=== PATIENT | female | born 1995 | race Caucasian/White ===

== ENCOUNTER 2018-05-13 09:41 | Emergency (ER) | payer OTHER ==
[2018-05-13 11:01] LABS: Urine Blood 2+ (NEG); Urine Glucose NEGATIVE (NEG); Urine Protein 1+ (NEG)
[2018-05-13 11:04] LABS: Urine Bacteria >50 /HPF (<20); Urine Culture Reflex Order NOT NEEDED; Urine RBC <5 /HPF (NONE SEEN)
--- NOTE | 2018-05-13 11:04 | RAD REPORT ---
EXAM DESCRIPTION: CT - Stone Protocol - 05/13/2018 10:44 am CLINICAL HISTORY: Flank pain. FLANK PAIN COMPARISON: No comparisons TECHNIQUE: Axial images were obtained without oral or IV contrast. Lack of contrast limits solid org an and vascular assessment. The [id number] spans the entirety of the system partially obscuring uppermost abdomen and lung bases. Coronal reformatted images were obtained and reviewed. All CT scans are performed using dose optimization technique as appropriate and may include automated exposure control or mA/KV adjustment according to patient size. FINDINGS: The lower lung shannon are clear. Imaged portions of the liver and spleen show no suspicious findings on non-contrast imaging. The panc reas and adrenal glands are normal. No pathologic lymphadenopathy in the abdomen or pelvis. 5 mm stone (700 HU) right UVJ resulting in mild right hydronephrosis and hydroureter. A small calculu s is present inferior left kidney. No bowel obstruction, free air, free fluid or abscess. Normal appendix noted. No significant bony abnormality. A 3 cm right ovarian cyst suspected. IMPRESSION: 5 mm stone (700 HU) with moderate right hydronephrosis. Punctate inferior left renal calculus.
[2018-05-13] MEDS ORDERED: ONDANSETRON 4 MG/2 ML VIAL ONE (11:15)
[2018-05-13] MEDS ORDERED: TAMSULOSIN 0.4 MG SR CAP ONE (11:15)
[2018-05-13] MEDS ORDERED: MAGNESIUM SULFATE 1 gm IVPB 1 GM/100 ML BAG IV ONE (11:16)
[2018-05-13] MEDS ORDERED: NA CHLORIDE 0.9% 1,000 ML ONE (11:16)
[2018-05-13 11:43] LABS: BUN Blood Urea Nitrogen 9 mg/dL (7-18); Bicarbonate 25 mmol/L (21-32); Glucose Level 103 mg/dL (74-106); Potassium 3.5 mmol/L (3.5-5.1); Sodium Level 141 mmol/L (136-145)
--- NOTE | 2018-05-13 12:15 | ER ---
Nurse's Notes [facility] Name: Brenna Campuzano Age: 22 yrs Sex: Female : 1995 Arrival Date: 05/13/2018 Time: 09:45 Bed 17 Private MD: Diagnosis: Calculus of kidney and ureter Presentation: 05/13 10:20 Presenting complaint: Patient states: Urinary urgency and feeling that she is unable to aj empty her bladder for 2-3 weeks. 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 Transition of care: patient was not received from another setting of care. Onset of symptoms was April 27, 2018. Risk Assessment: Do you want to hurt yourself or someone else? Patient reports no desire to harm self or others. Initial Sepsis Screen: Does the patient meet any 2 criteria? No. Patient's initial sepsis screen is negative. Does the patient have a suspected source of infection? No. Patient's initial sepsis screen is negative. Care prior to arrival: None. 10:20 Method Of Arrival: Ambulatory 10:20 Acuity: ARDEN 3 aj Triage Assessment: 10:22 General: Appears in no apparent distress. uncomfortable, Behavior is calm, cooperative, aj appropriate for age. Pain: Complains of pain in right mid back. Neuro: Level of Consciousness is awake, alert, obeys commands, Oriented to person, place, time, situation, Appropriate for age. Respiratory: Airway is patent Respiratory effort is even, unlabored, Respiratory pattern is regular, symmetrical. GI: Reports nausea. : Reports urgency, urinary frequency. Derm: Skin is intact, is healthy with good turgor, Skin is pink, warm \T\ dry. normal. Musculoskeletal: Circulation, motion, and sensation intact. Reports pain in right mid back. 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 - Social history:: Smoking status: Patient/guardian denies using tobacco. - Ebola Screening: : Patient negative for fever greater than or equal to 101.5 degrees Fahrenheit, and additional compatible Ebola Virus Disease symptoms Patient denies exposure to infectious person Patient denies travel to an Ebola-affected area in the 21 days before illness onset No symptoms or risks identified at this time. Screenin:44 Abuse screen: Denies threats or abuse. Denies injuries from another. Nutritional hj screening: No deficits noted. Tuberculosis screening: No symptoms or risk factors identified. Fall Risk None identified. Assessment: 10:20 General: Appears in no apparent distress. uncomfortable, Behavior is calm, cooperative, hj appropriate for age. Pain: Complains of pain in right mid back. Neuro: Level of Consciousness is awake, alert, obeys commands, Oriented to person, place, time, situation, Appropriate for age. Cardiovascular: Capillary refill < 3 seconds Patient's skin is warm and dry. Respiratory: Airway is patent Respiratory effort is even, unlabored, Respiratory pattern is regular, symmetrical. GI: Abdomen is non-distended. : No signs and/or symptoms were reported regarding the genitourinary system. EENT: No signs and/or symptoms were reported regarding the EENT system. Derm: No signs and/or symptoms reported regarding the dermatologic system. Musculoskeletal: Reports pain in right mid back. 11:48 Reassessment: Patient and/or family updated on plan of care and expected duration. Pain hj level reassessed. Patient is alert, oriented x 3, equal unlabored respirations, skin warm/dry/pink. presence of stone; medicated; awaiting results and POC:. Vital Signs: 10:22 BP 131 / 87; Pulse 88; Resp 19; Temp 97.6; Pulse Ox 100% on R/A; Weight 81.65 kg; aj Height 5 ft. 5 in. (165.10 cm); 11:48 BP 123 / 77; Pulse 90; Resp 18; Pulse Ox 100% on R/A; hj 12:13 BP 129 / 85; Pulse 96; Resp 18; Pulse Ox 100% on R/A; hj 10:22 Body Mass Index 29.95 (81.65 kg, 165.10 cm) ED Course: 09:45 Patient arrived in ED. mr 09:45 Arianna Orantes [facility]-C [facility]. kb 09:45 Ab Inman MD is Attending Physician. kb 10:20 Initial lab(s) drawn, by me, sent to lab. Inserted saline lock: 22 gauge in right hj antecubital area, using aseptic technique. Blood collected. 10:22 Triage completed. aj 10:22 Arm band placed on right wrist. Patient placed in an exam room. aj 10:24 Elpidio Grimes, RN is Primary Nurse. hj 10:33 Radiology exam delayed due to test not completed at this time. sj 10:42 CT Stone Protocol In Process Unspecified. EDMS 10:45 Patient has correct armband on for positive identification. Bed in low position. Call hj light in reach. Side rails up X 1. Adult w/ patient. 12:16 Pelon Daniels MD is Referral Physician. kb 12:24 No provider procedures requiring assistance completed. IV discontinued, intact, hj bleeding controlled, No redness/swelling at site. Pressure dressing applied. Administered Medications: 11:05 Drug: NS 0.9% 1000 ml Route: IV; Rate: 1000 ml; Site: right antecubital; hj 11:50 Follow up: IV Status: Completed infusion hj 11:05 Drug: Zofran 4 mg Route: IVP; Site: right antecubital; hj 11:50 Follow up: Response: No adverse reaction hj 11:05 Drug: Magnesium Sulfate 1 grams Route: IVPB; Infused Over: 30 mins; Site: right hj antecubital; 11:50 Follow up: Response: No adverse reaction hj 12:26 Follow up: IV Status: Completed infusion hj 11:23 Drug: Flomax 0.4 mg Route: PO; hj 11:50 Follow up: Response: No adverse reaction hj 12:07 Drug: TORadol 30 mg Route: IVP; Site: right antecubital; hj 12:12 Follow up: Response: Pain is decreased hj 12:07 Drug: Rocephin - (cefTRIAXone) 1 grams Route: IVPB; Infused Over: 30 mins; Site: right hj antecubital; 12:13 Follow up: IV Status: Completed infusion hj Outcome: 12:15 Discharge ordered by . kb 12:24 Discharged to home ambulatory. hj 12:24 Condition: stable 12:24 Discharge instructions given to patient, family, Instructed on discharge instructions, follow up and referral plans. medication usage, Demonstrated understanding of instructions, follow-up care, medications, Prescriptions given X 5 Rx; 12:25 Patient left the ED. hj Signatures: Dispatcher [employer] EDMS Arianna Orantes ROLL UP OPERATOR-C ROLL UP OPERATOR-CkCinthia Bolton, RN RN Serena Moreland Susan sj Joaquin, Henry, RN RN hj
--- NOTE | 2018-05-13 12:15 | EDPHYS ---
Physician Documentation [facility] Name: Brenna Cmapuzano Age: 22 yrs Sex: Female : 1995 Arrival Date: 05/13/2018 Time: 09:45 Bed 17 Private MD: ED Physician Ab Inman HPI: 05/13 12:12 This 22 yrs old Female presents to ER via Ambulatory with complaints of Back kb Pain, Urinary Problem, Nausea. 12:13 The patient complains of pain in the right flank. The pain does not radiate. Onset: The kb symptoms/episode began/occurred 1 hour(s) ago. Modifying factors: The symptoms are alleviated by nothing. the symptoms are aggravated by nothing. Associated signs and symptoms: Pertinent positives: nausea, difficulty urinating. Severity of pain: At its worst the pain was moderate in the emergency department the pain is unchanged. The patient has not experienced similar symptoms in the past. The patient has not recently seen a physician. 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 - Social history:: Smoking status: Patient/guardian denies using tobacco. - Ebola Screening: : Patient negative for fever greater than or equal to 101.5 degrees Fahrenheit, and additional compatible Ebola Virus Disease symptoms Patient denies exposure to infectious person Patient denies travel to an Ebola-affected area in the 21 days before illness onset No symptoms or risks identified at this time. ROS: 12:13 Constitutional: Negative for fever, chills, and weight loss, Cardiovascular: Negative kb for chest pain, palpitations, and edema, Respiratory: Negative for shortness of breath, cough, wheezing, and pleuritic chest pain, Abdomen/GI: Negative for abdominal pain, nausea, vomiting, diarrhea, and constipation, MS/Extremity: Negative for injury and deformity, Skin: Negative for injury, rash, and discoloration, Neuro: Negative for headache, weakness, numbness, tingling, and seizure. 12:13 : Positive for urinary symptoms, flank pain, small amounts, difficulty urinating. Exam: 12:13 Constitutional: This is a well developed, well nourished patient who is awake, alert, kb and in no acute distress. Head/Face: Normocephalic, atraumatic. Chest/axilla: Normal chest wall appearance and motion. Nontender with no deformity. No lesions are appreciated. Cardiovascular: Regular rate and rhythm with a normal S1 and S2. No gallops, murmurs, or rubs. Normal PMI, no JVD. No pulse deficits. Respiratory: Lungs have equal breath sounds bilaterally, clear to auscultation and percussion. No rales, rhonchi or wheezes noted. No increased work of breathing, no retractions or nasal flaring. Abdomen/GI: Soft, non-tender, with normal bowel sounds. No distension or tympany. No guarding or rebound. No evidence of tenderness throughout. Skin: Warm, dry with normal turgor. Normal color with no rashes, no lesions, and no evidence of cellulitis. MS/ Extremity: Pulses equal, no cyanosis. Neurovascular intact. Full, normal range of motion. Neuro: Awake and alert, GCS 15, oriented to person, place, time, and situation. Cranial nerves II-XII grossly intact. Motor strength 5/5 in all extremities. Sensory grossly intact. Cerebellar exam normal. Normal gait. 12:13 Back: CVA tenderness, that is moderate, is noted on the right. Vital Signs: 10:22 BP 131 / 87; Pulse 88; Resp 19; Temp 97.6; Pulse Ox 100% on R/A; Weight 81.65 kg; aj Height 5 ft. 5 in. (165.10 cm); 11:48 BP 123 / 77; Pulse 90; Resp 18; Pulse Ox 100% on R/A; hj 12:13 BP 129 / 85; Pulse 96; Resp 18; Pulse Ox 100% on R/A; hj 10:22 Body Mass Index 29.95 (81.65 kg, 165.10 cm) aj MDM: 10:24 Patient medically screened. kb 12:14 Data reviewed: vital signs, nurses notes. Data interpreted: Pulse oximetry: on room air kb is 100 %. Interpretation: normal. Counseling: I had a detailed discussion with the patient and/or guardian regarding: the historical points, exam findings, and any diagnostic results supporting the discharge/admit diagnosis, lab results, radiology results, the need for outpatient follow up, a urologist, to return to the emergency department if symptoms worsen or persist or if there are any questions or concerns that arise at home. 05/13 10:23 Order name: Urine Microscopic Only; Complete Time: 11:05 kb 05/13 10:36 Order name: Urine Dipstick--Ancillary (enter results); Complete Time: 11:03 eb 05/13 10:31 Order name: CT Stone Protocol; Complete Time: 11:04 kb 05/13 10:36 Order name: Urine --Ancillary (enter results); Complete Time: 11:03 eb 05/13 11:05 Order name: Basic Metabolic Panel; Complete Time: 12:07 kb 05/13 10:23 Order name: Urine Test (obtain specimen); Complete Time: 10:34 kb 05/13 10:23 Order name: Urine Dipstick-Ancillary (obtain specimen); Complete Time: 10:34 kb 05/13 11:05 Order name: IV Start; Complete Time: 11:24 kb Administered Medications: 11:05 Drug: NS 0.9% 1000 ml Route: IV; Rate: 1000 ml; Site: right antecubital; hj 11:50 Follow up: IV Status: Completed infusion hj 11:05 Drug: Zofran 4 mg Route: IVP; Site: right antecubital; hj 11:50 Follow up: Response: No adverse reaction hj 11:05 Drug: Magnesium Sulfate 1 grams Route: IVPB; Infused Over: 30 mins; Site: right hj antecubital; 11:50 Follow up: Response: No adverse reaction hj 12:26 Follow up: IV Status: Completed infusion hj 11:23 Drug: Flomax 0.4 mg Route: PO; hj 11:50 Follow up: Response: No adverse reaction hj 12:07 Drug: TORadol 30 mg Route: IVP; Site: right antecubital; hj 12:12 Follow up: Response: Pain is decreased hj 12:07 Drug: Rocephin - (cefTRIAXone) 1 grams Route: IVPB; Infused Over: 30 mins; Site: right hj antecubital; 12:13 Follow up: IV Status: Completed infusion hj Disposition: 14:35 Co-signature as Attending Physician, Ab Inman MD. rn Disposition: 05/13/18 12:15 Discharged to Home. Impression: Calculus of kidney and ureter. - Condition is Stable. - Discharge Instructions: Kidney Stones, [id number], Dietary Guidelines to Help Prevent Kidney Stones. - Prescriptions for Tylenol- Codeine #3 300-30 mg Oral Tablet - take 1 tablet by ORAL route every 6 hours As needed; 15 tablet. Zofran 4 mg Oral Tablet - take 1 tablet by ORAL route every 6 hours As needed; 20 tablet. Flomax 0.4 mg Oral Capsule, Sust. Release 24 hr - take 1 capsule by ORAL route once daily 1/2 hour following the same meal each day; 10 capsule. Diclofenac Sodium 75 mg Oral Tablet, Delayed Release (E.C.) - take 1 tablet by ORAL route 2 times per day As needed; 30 tablet. Macrobid 100 mg Oral Capsule - take 1 capsule by ORAL route every 12 hours for 7 days; 14 capsule. - Medication Reconciliation Form, Thank You Letter, Antibiotic Education, Prescription Opioid Use, Work release form form. - Follow up: Emergency Department; When: As needed; Reason: Worsening of condition. Follow up: Private Physician; When: 2 - 3 days; Reason: Recheck today's complaints, Continuance of care, Re-evaluation by your physician. Follow up: Pelon Daniels MD; When: 1 - 2 days; Reason: Recheck today's complaints. Signatures: Dispatcher [employer] EDMS Arianna Orantes, SASH STICKER-C SASH STICKER-Cinthia Hsu RN RN aj Nieto, Roman, MD MD rn Joaquin, Henry, RN RN hj Corrections: (The following items were deleted from the chart) 10:30 10:27 Bladder Scanner ordered. kb kb 12:14 12:13 Crutch training provided to patient and/or family. Return demonstration given kb kb 12:16 12:15 05/13/2018 12:15 Discharged to Home. Impression: Calculus of kidney and ureter. kb Condition is Stable. Forms are Medication Reconciliation Form, Thank You Letter, Antibiotic Education, Prescription Opioid Use. Follow up: Emergency Department; When: As needed; Reason: Worsening of condition. Follow up: Private Physician; When: 2 - 3 days; Reason: Recheck today's complaints, Continuance of care, Re-evaluation by your physician. 12:25 12:16 05/13/2018 12:15 Discharged to Home. Impression: Calculus of kidney and ureter. hj Condition is Stable. Discharge Instructions: Kidney Stones, [id number], Dietary Guidelines to Help Prevent Kidney Stones. Prescriptions for Tylenol-Codeine #3 300-30 mg Oral Tablet - take 1 tablet by ORAL route every 6 hours As needed; 15 tablet, Zofran 4 mg Oral Tablet - take 1 tablet by ORAL route every 6 hours As needed; 20 tablet, Flomax 0.4 mg Oral Capsule, Sust. Release 24 hr - take 1 capsule by ORAL route once daily 1/2 hour following the same meal each day; 10 capsule, Diclofenac Sodium 75 mg Oral Tablet, Delayed Release (E.C.) - take 1 tablet by ORAL route 2 times per day As needed; 30 tablet, Macrobid 100 mg Oral Capsule - take 1 capsule by ORAL route every 12 hours for 7 days; 14 capsule. and Forms are Medication Reconciliation Form, Thank You Letter, Antibiotic Education, Prescription Opioid Use. Follow up: Emergency Department; When: As needed; Reason: Worsening of condition. Follow up: Private Physician; When: 2 - 3 days; Reason: Recheck today's complaints, Continuance of care, Re-evaluation by your physician. Follow up: Pelon Daniels; When: 1 - 2 days; Reason: Recheck today's complaints. kb
[2018-05-13] MEDS ORDERED: CEFTRIAXONE/SWI 1gm 1 GM/10 ML SYR ONE (12:16)
[2018-05-13] MEDS ORDERED: KETOROLAC 30 MG/ML INJ ONE (12:16)
[2018-05-13 12:30] VITALS: TEMP 97.6; O2SAT 100
[2018-05-13 12:32] VITALS: BP 129/85
== END 2018-05-13 12:25 | disposition home or self-care (01) ==
LOC: ER 09:41
DX: N20.2 Calculus of kidney with calculus of ureter (principal); F32.9 Major depressive disorder, single episode, unspecified
CPT/HCPCS: 36415; 74176; 76377; 80048; 81003; 81015; 81025; 96365; 96375; 99284; J0696; J2405; J3475; J7030